=== PATIENT | male | born 1990 | race Caucasian/White ===

== ENCOUNTER 2017-02-27 12:48 | Inpatient (IN) | payer OTHER ==
[2017-02-27] VITALS (470 sets, daily range): BP systolic 110–143; BP diastolic 76–96; PULSE 84–119; TEMP 97.7; O2SAT 83–100
[~2017-02-27] VITALS: Ht 175.3 cm; Wt 82.1 kg
[2017-02-27 13:13] LABS: BASO # 0.1 (0.0-0.2); BASO % 1.4 % (0.0-2.0); EOS % 0.5 % (0-4.0); GRAN # 3.8 (1.4-6.5); GRAN % 67.9 % (42.2-75.2); HEMATOCRIT 42.8 % (42.0-52.0); HEMOGLOBIN 15.2 g/dl (13.5-18.0); LYMPH % 17.1 % (20.0-51.0); MEAN CELL VOLUME 99 fl (80.0-100.0); MEAN CORPUSCULAR HEMOGLOBIN 35 pg (27.0-31.0); MEAN CORPUSCULAR HGB CONC 36 g/dl (33.0-37.0); MEAN PLATELET VOLUME 10.5 fl (7.4-10.4); MONO # 0.7 (0.1-0.6); MONO % 12.4 % (1.7-9.3); PLATELET COUNT 147 K/mm3 (130-400); RED BLOOD COUNT 4.32 M/mm3 (4.20-5.60); WHITE BLOOD COUNT 5.6 K/mm3 (4.8-10.8)
[2017-02-27 13:23] LABS: ADJUSTED CALCIUM 9.3 mg/dL (8.4-10.2); ALANINE AMINOTRANSFERASE 208 U/L (21-72); ALBUMIN 4.1 gm/dL (3.5-5.0); ALKALINE PHOSPHATASE 202 U/L (50-136); ANION GAP 19 mmol/L (7-16); BILIRUBIN,TOTAL 5.5 mg/dL (0.0-1.0); BLOOD UREA NITROGEN 14 mg/dL (9-20); CALCIUM 9.4 mg/dL (8.4-10.2); CARBON DIOXIDE 17 mmol/L (22-30); CHLORIDE 97 mmol/L (98-107); CREATININE, serum 1.14 mg/dL (0.66-1.25); GLUCOSE 171 mg/dL (74-106); LIPASE 665 U/L (23-300); MAGNESIUM 1.7 mg/dL (1.6-2.3); SODIUM 134 mmol/L (137-145); TOTAL PROTEIN 7.1 gm/dL (6.4-8.2)
[2017-02-27 13:36] LABS: PROTHROMBIN TIME 12.1 SECONDS (9.7-12.8)
[2017-02-27 13:39] LABS: PROLACTIN 47.9 ng/mL (3.7-17.9)
[2017-02-27 13:39] LABS: PARTIAL THROMBOPLASTIN TIME 25.7 SECONDS (26.0-37.0)
[2017-02-27 13:42] LABS: TROPONIN-I < 0.012 ng/mL (0.000-0.034)
[2017-02-28] VITALS (328 sets, daily range): BP systolic 117–140; BP diastolic 80–94; PULSE 54–107; TEMP 97–98; O2SAT 84–100
[2017-02-28 06:04] LABS: PROTHROMBIN TIME 11.5 SECONDS (9.7-12.8)
[2017-02-28 06:15] LABS: ADJUSTED CALCIUM 9.1 mg/dL (8.4-10.2); ALBUMIN 3.4 gm/dL (3.5-5.0); BILIRUBIN,TOTAL 3.5 mg/dL (0.0-1.0); CALCIUM 8.6 mg/dL (8.4-10.2); CREATININE, serum 0.93 mg/dL (0.66-1.25); POTASSIUM 3.5 mmol/L (3.4-5.0); TOTAL PROTEIN 6.4 gm/dL (6.4-8.2)
[2017-03-01 00:01] VITALS: BP 139/86; PULSE 64; TEMP 97.8
[2017-03-01 01:52] VITALS: BP 133/98; PULSE 86; TEMP 97.6
[2017-03-01 04:30] VITALS: BP 147/89; PULSE 53; TEMP 97.6
[2017-03-01 06:23] LABS: ADJUSTED CALCIUM 9.7 mg/dL (8.4-10.2); ALBUMIN 3.9 gm/dL (3.5-5.0); BILIRUBIN,TOTAL 2.5 mg/dL (0.0-1.0); CALCIUM 9.6 mg/dL (8.4-10.2); CREATININE, serum 0.92 mg/dL (0.66-1.25); POTASSIUM 3.4 mmol/L (3.4-5.0); TOTAL PROTEIN 7.1 gm/dL (6.4-8.2)
[2017-03-01] MEDS ORDERED: MULTI VITAMINS1 TAB PO (07:27)
[2017-03-01 07:57] VITALS: BP 135/99; PULSE 81; TEMP 98.3
[2017-03-01] MEDS ORDERED: FOLIC ACID 11 MG/TA1 PO (09:02)
[2017-03-01] MEDS ORDERED: MAG-OX 400400 MG/TAB PO (09:02)
[2017-03-01] MEDS ORDERED: THIAMINE 1100 MG/TAB PO (09:02)
== END 2017-03-01 09:57 | disposition home or self-care (01) | DRG 897 ==
LOC: COL.ER 12:48 → EDSEX 12:51 → COL.ER 12:51 → ICU 14:24 → MEDICAL 14:24 → ICU 02-28 09:40 → MEDICAL 02-28 12:28
PROVIDERS: Emergency Medicine; Internal Medicine; Physician Assistant
DX: F10.231 Alcohol dependence with withdrawal delirium (principal); E87.2 Acidosis; G40.409 Other generalized epilepsy and epileptic syndromes, not intractable, without status epilepticus; Y90.0 Blood alcohol level of less than 20 mg/100 ml; E87.6 Hypokalemia; K70.10 Alcoholic hepatitis without ascites
CPT/HCPCS: 99223-AI; 99232-AI; 99239; J2060; J3411; J3480; J7030

== ENCOUNTER → 2017-03-07 | Outpatient (CLI) | payer OTHER ==
[~2017-03-07] MED LIST: FOLIC ACID 11 MG/TA1 PO; MAG-OX 400400 MG/TAB PO; MULTI VITAMINS1 TAB PO; THIAMINE 1100 MG/TAB PO
[2017-03-07 16:22] LABS: ADJUSTED CALCIUM 9.1 mg/dL (8.4-10.2); ALBUMIN 4.6 gm/dL (3.5-5.0); CALCIUM 9.6 mg/dL (8.4-10.2); CREATININE, serum 0.94 mg/dL (0.66-1.25); POTASSIUM 4.1 mmol/L (3.4-5.0); TOTAL PROTEIN 7.8 gm/dL (6.4-8.2)
== END ==
LOC: COL.LAB 13:39
PROVIDERS: Family Medicine
DX: R74.0 Nonspecific elevation of levels of transaminase and lactic acid dehydrogenase [LDH] (principal)